=== PATIENT | male | born 1990 | race Caucasian/White ===

== ENCOUNTER → 2023-05-28 | Outpatient (CLI) | payer OTHER, SELFPAY ==
--- NOTE | 2023-05-28 17:36 | US_ITS ---
INDICATION: OVERACTIVE BLADDER EXAMINATION: Ultrasound US Kidney(s) complete (eg, kidneys and bladder) TECHNIQUE: Tao scale and color doppler images were obtained of the kidneys. COMPARISON: No relevant prior comparison study available FINDINGS: RIGHT KIDNEY: The right kidney measures 9.7 cm in length. There is no hydronephrosis. No shadowing calculus, focal lesion or perinephric collection is demonstrated. LEFT KIDNEY: The left kidney measures 11.1 cm in length. There is no hydronephrosis. No shadowing calculus, focal lesion or perinephric collection is demonstrated. URINARY BLADDER: The urinary bladder volume measures 41.94 mL. The post void residual measures 2.83 mL. No acute abnormality. US/Kidney and Bladder IMPRESSION: Within normal limits renal ultrasound. Electronically Signed: Lauren Serrano MD at 9:24 EDT ,
== END | disposition home or self-care (01) ==
PROVIDERS: Referring Provider Urology; Visit Provider Urology
DX: R35.0 Frequency of micturition (principal); N32.81 Overactive bladder
CPT/HCPCS: 76770

== ENCOUNTER → 2023-07-15 | Outpatient (CLI) | payer OTHER, SELFPAY ==
[2023-07-15 17:14] LABS: Anion Gap 6 (5-15); BUN 12 mg/dL (7-18); BUN/Creat Ratio 12.8 RATIO (10-20); Calcium,Total 8.8 mg/dL (8.5-10.1); Chloride 105 mmol/L (98-107); Creatinine, Serum 0.94 mg/dL (0.70-1.30); EST Glomerular Filtration Rate 99 mL/min (>60); Est Glom Filt Rate - Afr Amer 120 mL/min (>60); Glucose 91 mg/dL (74-106); Potassium 3.3 mmol/L (3.5-5.1); Sodium Level 140 mmol/L (136-145)
[2023-07-15 18:16] LABS: Hemoglobin A1c 4.9 % (3.8-5.6)
== END | disposition home or self-care (01) ==
LOC: LAB 16:00
PROVIDERS: PCP Family Medicine; Referring Provider Nurse Practitioner; Visit Provider Nurse Practitioner
DX: R35.0 Frequency of micturition (principal)
CPT/HCPCS: 36415; 80048; 83036

== ENCOUNTER → 2023-07-24 | Outpatient (CLI) | payer OTHER, SELFPAY ==
--- NOTE | 2023-07-24 18:02 | CT_ITS ---
STUDY: CT ABDOMEN AND PELVIS WITH AND WITHOUT CONTRAST REASON FOR EXAM: Male, 33 years old. FREQUENCY OF MICTURITION RADIATION DOSAGE (If Supplied By Facility): CTDIvol = ( 10.49 ) mGy, DLP = ( 1439.36 ) mGycm TECHNIQUE: Transaxial images were obtained from the dome of the diaphragm to the symphysis pubis without oral contrast. IV 100mL Isovue-300 was administered. Sagittal and coronal images were reconstructed. Individualized dose optimization techniques were used for this CT. COMPARISON: Comparison is made with prior sonogram dated May 28, 2023. FINDINGS: The visualized lung bases are unremarkable. The visualized portions of the heart are within normal limits. Normal liver. Normal gallbladder and extrahepatic biliary system. Normal spleen. Normal pancreas. Normal bilateral adrenal glands. Normal right kidney. Normal left kidney. Normal visualized stomach. Normal small intestine. Normal colon. The appendix is visualized and appears normal. Normal abdominal aorta. Normal inferior vena cava. Normal retroperitoneum. Normal urinary bladder. Normal abdominal wall. Normal osseous structures. CT/CT Abd/Pelvis W/WO Contrast IMPRESSION: Normal unenhanced and enhanced CT of the abdomen and pelvis. Electronically Signed: Robert Jones MD at 12:30 EDT ,
== END | disposition home or self-care (01) ==
LOC: CT 18:00
PROVIDERS: PCP Family Medicine; Referring Provider Urology; Visit Provider Urology
DX: R35.0 Frequency of micturition (principal); R30.9 Painful micturition, unspecified
CPT/HCPCS: 74178; Q9967

== ENCOUNTER 2023-09-13 05:55 | Day surgery (SDC) | payer OTHER, SELFPAY ==
[2023-09-13] VITALS (7 sets, daily range): BP systolic 98–119; BP diastolic 71–88; PULSE 85–113; RESP 16–18; TEMP 36.1–37.2; O2SAT 98–100; BMI 21.2
[2023-09-13] MEDS: Lactated Ringers 1,000 ML 15 ML IV (06:43)
[2023-09-13] MEDS: Cefazolin 2 GM in 0.9% Normal Saline (100mL Bag) 100 ML IV (07:30)
--- NOTE | 2023-09-13 07:45 | RAD_ITS ---
PROCEDURE: Axonics placement DATE OF EXAMINATION: September 13, 2023. INDICATION: Male, 33 years old. Bladder control. FLUOROSCOPY TIME (if supplied): (34 seconds) minutes/seconds. 11.82 mGy RAD/Pelvis 1 or 2 Views IMPRESSION: Fluoroscopic services provided for Axonics placement. It overlies the left hemipelvis. Electronically Signed: Robert Jones MD at 12:22 EST ,
[2023-09-13] MEDS: Lidocaine 1% /Epi 1:100 (50ml) 50 ML VIAL (07:50)
--- NOTE | 2023-09-13 08:29 | PCM.HP.STD ---
HPI - General General Date of Service: 09/13/23 Chief Complaint: Severe frequency and urgency symptoms HPI Narrative TONA SAWYER, is a 33 M who presents for stage I Axonics implant he has a history of overactive bladder urgency frequency symptoms no improvement after many medications to reduce stage I Axonics InterStim therapy implant for trial PFSH Medical History Bladder disease Non-smoker Home Medications cephalexin 500 mg capsule 500 mg PO TID #21 caps 09/13/23 [Rx Last Taken Unknown] oxycodone 5 mg tablet 5 mg PO Q6H PRN pain 7 days #14 tabs 09/13/23 [Rx Last Taken Unknown] Allergy/AdvReac Type Severity Reaction Status Date / Time No Known Allergies Allergy Verified 09/13/23 06:22 Surgical History (Updated 09/06/23 @ 12:03 by Rosalinda Bob) History of bladder surgery Social History Smoking Status: Never smoker Vital Signs Vital Signs Vital Signs: 09/13/23 06:22 09/13/23 06:24 Temperature 98.1 F Temperature Source Temporal Pulse Rate 99 Respiratory Rate 18 Respiratory Pattern Normal Blood Pressure 115/88 H Blood Pressure Mean 97 Blood Pressure Source Monitor Blood Pressure Position Semi-Fowlers Blood Pressure Location Left Arm Pulse Ox 100 Oxygen Delivery Method Room Air Weight Weight: 61.416 kg Body Mass Index (BMI) 21.2
--- NOTE | 2023-09-13 08:30 | OP.PCM_ITS ---
Report of Operation Date of Procedure: 09/13/23 Pre-Operative Diagnosis: Frequency, urgency of urination Post-Operative Diagnosis: The same Surgery/Procedure Performed:: Stage I Axonics implant, InterStim therapy Description of Surgical Findings:: The patient presents to the operating room for placement of stage I interstim therapy. In the preoperative setting she is failed medical management for the patient urge incontinence and severe frequency of urination, a voiding diary was reviewed. The patient understands these is no guarantees that in the future the InterStim therapy will keep working to the patient's satisfaction and its always possible and it may need to have a surgical revision, change in implant, possible revision or removal of implant. We also talk about the risks of pain with stimulation, bleeding and infection or any injury to nerves or bony structures and the tailbone area. After reviewing all this with the patient in the preoperative area she signed the consent form and we proceeded with stageI interstim therapy implant. Patient was brought back to the operating room and placed supine on the table and then transferred to facedown the table and underwent sedation with comfort hugging a pillow. Patient's lower back was prepped and draped in usual sterile fashion, I then palpated the bony landmarks identify the tailbone the sacrum and the pocket area was identified where the district leader would be implanced and also the lead. Fluoroscopy was brought in to identify the pelvis we identify the spinous processes of the pelvic bone we used a finder needle to lay across the spinous process to the approximate the location of the S3 foramen. I then identified the lateral borders of the foramen using the other spinal needle. Under this the skin was then marked and potential entrances were by crow roximation and bony landmarks using fluoroscopy. I then infiltrated the skin about 2 cm up above the approximation of the S3 foramen and then used the needle within the stage I InterStim kit to go straight down to the potential S3 foramen spot marching along the sacrum until the needle electrode dropped into what appeared to be the S3 foramen. Under fluoroscopy in AP and lateral veiw I confirmed that I had the lead in the S3 foramen, I then stimulated the needle and had good cori response and had toe flexion but no calf rotation, confirm placement of the lead in the S3 Foremen. I then placed the guide through the needle the stylette was removed and then the needle was removed over the guide an incision was made into the skin and then through the incision incision and over the guide I introduced the sheath I followed the sheath under fluoroscopy until the marker on the sheath was three fourths down from the anterior plate of the sacrum. Once this was in good position then the stylette was removed and through the sheath I then introduced the stage I InterStim stimulator lead, I then checked the lead for stimulation of cori and toe flexion at all 4 sites 0, 1, 2, 3 and had good response with cori and toe flexion and pleased with the placement of the lead. Under fluoroscopy I captured the placement the lead this was documented both in AP and lateral views. I then removed the stylette within the lead and then pulled back in the sheath of the deployed the tines on the lead to secure the lead and the sacrum and the S3 foramen. Another fluoroscopic check was done to make sure no movement of the lead. After this was confirmed then pocket was created in the patient's lateral side where the permanent lead was then attached to the temporary extension. We then tunneled the temporary extension wire with the provided tunneler in the kit to index incision site beyond the midline. After tunneling the wire then the wires connected to the external Bluetooth device. We then placed a suture knot in the temporary extension to prevent migration and then placed a temper extension in the pocket and the pocket Was closed in 2 layers we then used tapes and the provided belt in the kit to secure the temporary lead to the patient we then confirmed with [employer] rep the lead was working and in the postoperative setting the patient will have the InterStim therapy set and programmed. Surgeon: Migue Ge Type of Anesthesia: MAC and Topical Anesth Drains: none Estimated Blood Loss (mL): 0 Admit VTE Documentation VTE Present on Admission: No VTE Mechan Device Prophylaxis: SCD's VTE Pharm Prophylaxis ordered?: No
--- NOTE | 2023-09-13 08:30 | DCINST_ITS ---
Discharge Instructions Diet Discharge Diet: No restrictions Activity Discharge Activity: Return to Normal Activity and May Not Drive (while taking narcotic pain medications.) Dressing / Incision Call your doctor if you observe: Fever of 101 or Higher Follow Up Care Please Follow Up With: Migue Ge MD When: Call [phone] for an appointment Test Results: Test results from this visit will be discussed in further detail at your follow- up appointment, if applicable. Discharge Plan Admission Primary Reason for Your Visit: Axonics stage I InterStim therapy Attending Provider: Migue Ge Primary Care Provider: García Maher Discharge Orders/Prescriptions Prescriptions: New cephalexin 500 mg capsule 500 mg PO TID Qty: 21 0RF oxycodone 5 mg tablet 5 mg PO Q6H PRN (Reason: pain) 7 Days Qty: 14 0RF Referrals / Follow Up: García Maher DO [Primary Care Provider] - Disposition Disposition (needs filled in before D/C Order can be placed): Home, Self Care
== END 2023-09-13 10:17 | disposition home or self-care (01) ==
LOC: SDC 06:01 → AC 06:04
PROVIDERS: PCP Family Medicine; Referring Provider Urology; Visit Provider Urology
PROC: (CPT 64581; principal; 2023-09-13 07:20)
DX: Z45.42 Encounter for adjustment and management of neurostimulator (principal); N32.81 Overactive bladder; R39.15 Urgency of urination
CPT/HCPCS: 64581; 00630; 72170; 76000; J7120; J2405

== ENCOUNTER 2023-09-27 09:15 | Day surgery (SDC) | payer OTHER, SELFPAY ==
[2023-09-27 09:50] VITALS: BP 117/87; PULSE 102; RESP 16; TEMP 37.3; O2SAT 100; BMI 21.9
[2023-09-27] MEDS: Lactated Ringers 1,000 ML 15 ML IV (09:56)
[2023-09-27] MEDS: Cefazolin 2 GM in 0.9% Normal Saline (100mL Bag) 100 ML IV (12:50)
[2023-09-27] MEDS: Lidocaine 1% (30 ml sdv) 30 ML Vial (13:05)
--- NOTE | 2023-09-27 13:21 | DCINST_ITS ---
Discharge Instructions Diet Discharge Diet: No restrictions Activity Discharge Activity: Return to Normal Activity and May Not Drive (while taking narcotic pain medications.) Dressing / Incision Call your doctor if you observe: Fever of 101 or Higher Follow Up Care Please Follow Up With: Migue Ge MD When: Call [phone] for an appointment Test Results: Test results from this visit will be discussed in further detail at your follow- up appointment, if applicable. Discharge Plan Admission Primary Reason for Your Visit: removal of stage 1 interstim Attending Provider: Migue Ge Primary Care Provider: García Maher Discharge Orders/Prescriptions Prescriptions: New cephalexin 500 mg capsule 500 mg PO TID Qty: 10 0RF Referrals / Follow Up: García Maher DO [Primary Care Provider] - Migue Ge MD [Med Staff - Active Staff] - Disposition Disposition (needs filled in before D/C Order can be placed): Home, Self Care
--- NOTE | 2023-09-27 13:21 | PCM.HP.STD ---
HPI - General General Date of Service: 09/27/23 Chief Complaint: Status post stage I InterStim HPI Narrative TONA SAWYER, is a 33 M who presents for removal of stage I InterStim we did InterStim trial but it did not help with his bladder control bladder function so he can remove the device PFSH Medical History Bladder disease Non-smoker Home Medications cephalexin 500 mg capsule 500 mg PO TID #10 caps 09/27/23 [Rx Last Taken Unknown] Allergy/AdvReac Type Severity Reaction Status Date / Time No Known Allergies Allergy Verified 09/27/23 09:50 Surgical History History of bladder surgery Hx of cystoscopy Social History Smoking Status: Never smoker Vital Signs Vital Signs Vital Signs: 09/27/23 09:50 09/27/23 09:50 Temperature 99.1 F Temperature Source Temporal Pulse Rate 102 H Respiratory Rate 16 Respiratory Pattern Normal Blood Pressure 117/87 H Blood Pressure Mean 97 Blood Pressure Source Monitor Blood Pressure Position Semi-Fowlers Blood Pressure Location Left Arm Pulse Ox 100 Oxygen Delivery Method Room Air Weight Weight: 63.5 kg Body Mass Index (BMI) 21.9
--- NOTE | 2023-09-27 13:22 | OP.PCM_ITS ---
Report of Operation Date of Procedure: 09/27/23 Pre-Operative Diagnosis: Stage I InterStim removal Post-Operative Diagnosis: Stage I InterStim removal Surgery/Procedure Performed:: Patient underwent stage I InterStim trial for severe frequency urgency and overactive bladder but it failed to control his symptoms enough to warrant placement of a permanent device so today we can remove the InterStim lead. Patient was taken back to the operating room and a smooth induction of a MAC local he was placed upon the table and then in placed on the table the prior incision over the pocket was prepped and draped in usual sterile fashion made a small incision through the skin and then got to the temporary extension of the lead and cut off the excessive temper extension off the lead and then remove the lead adapter and then we cut down over the insertion site of the InterStim p ulled out the lead wire and then gently pulled the lead wire from the insertion site into the S3 foramen. After this was removed then we irrigated the incision sites we closed the pocket site with 2 layers with 2-0 Vicryl and a 4-0 running Monocryl and then closed the insertion site with a 1 stitch 4-0 Monocryl. Bandages and dressings were placed anesthetic was reversed taken back to PACU in good condition will see him back in 4 to 6 weeks for checkup Surgeon: Migue Ge Type of Anesthesia: MAC Admit VTE Documentation VTE Present on Admission: No VTE Mechan Device Prophylaxis: SCD's VTE Pharm Prophylaxis ordered?: No
[2023-09-27 13:30] VITALS: BP 100/80; BP 117/87; PULSE 97; RESP 16; TEMP 36.8; O2SAT 100
[2023-09-27 13:35] VITALS: BP 105/71; BP 117/87; PULSE 94; RESP 16; O2SAT 100
[2023-09-27 13:45] VITALS: BP 117/87; BP 94/71; PULSE 82; RESP 16; TEMP 36.7; O2SAT 100
[2023-09-27 14:15] VITALS: BP 117/87; BP 95/58; PULSE 83; RESP 16; TEMP 36.1; O2SAT 100
== END 2023-09-27 14:37 | disposition home or self-care (01) ==
LOC: SDC 09:26 → AC 09:29
PROVIDERS: PCP Family Medicine; Referring Provider Urology; Visit Provider Urology
PROC: (CPT 64585; principal; 2023-09-27 11:10)
DX: Z45.42 Encounter for adjustment and management of neurostimulator (principal); N32.81 Overactive bladder
CPT/HCPCS: 64585; 00300; J7120; J2405